=== PATIENT | female | born 1980 | race Caucasian/White ===

== ENCOUNTER 2016-12-09 13:59 | Emergency (ER) | payer BC ==
[2016-12-09 14:22] VITALS: PULSE 86; RESP 18; TEMP 98.1; O2SAT 100
--- NOTE | 2016-12-09 14:34 | ED PDOC ---
HPI: Skin/Bite Injury Time Seen by Provider: 12/09/16 14:27 Chief Complaint (Nursing): Bite Chief Complaint (Provider): dog bite History Per: Patient History/Exam Limitations: no limitations Onset/Duration Of Symptoms: Days (yesterday) Current Symptoms Are (Timing): Still Present Additional Complaint(s): 35yo F in Ed for eval of right 2nd digit dog bite sustained yesterday was seen by Haylee, Bear and Rx abx, however finger became more swollen, joint more stiff and more painful. denies fever shill. sent form office to have IV abx. - Animal Bite Description Of The Attack: Unprovoked Attack Description Of The Animal: Other (known [facility] from [facility] Animal Appears: Well Animal's Immunization Status: UTD Animal Control Notified: Yes Past Medical History Reviewed: Historical Data, Nursing Documentation, Vital Signs Vital Signs: Last Vital Signs Temp 98.1 F 12/09/16 14:17 Pulse 86 12/09/16 14:17 Resp 18 12/09/16 14:17 BP Pulse Ox 100 12/09/16 16:24 - Medical History PMH: No Chronic Diseases - Family History Family History: States: No Known Family Hx - Allergies Allergies/Adverse Reactions: Allergies Allergy/AdvReac Type Severity Reaction Status Date / Time No Known Allergies Allergy Verified 12/09/16 14:17 Review of Systems ROS Statement: Except As Marked, All Systems Reviewed And Found Negative Musculoskeletal: Positive for: Hand Pain Physical Exam - Reviewed Nursing Documentation Reviewed: Yes Vital Signs Reviewed: Yes - Physical Exam Appears: Positive for: Well, Non-toxic, No Acute Distress Cardiovascular/Chest: Positive for: Regular Rate, Rhythm Respiratory: Positive for: CNT, Normal Breath Sounds Extremity: Positive for: Other (right hand: 2nd digit-swelling noted wound noted ertyhema and awarmth noted dec ROM of joint noted. tenderness noted no drainage. good pulses) Neurologic/Psych: Positive for: Alert, Oriented - Laboratory Results Result Diagrams: 12/09/16 14:45 12/09/16 14:45 - ECG O2 Sat by Pulse Oximetry: 100 - Progress ED Course And Treament: pt will get unaysn IV, cbc/cmp Medical Decision Making Medical Decision Making: pt without elevated WBC, PT received unaysn IV and will be d/c with abx ( augmentin) with f.u with Diego MD. advise to use warm compress to area Disposition - Clinical Impression Clinical Impression: Animal bite wound - Patient ED Disposition Is Patient to be Admitted: No Counseled Patient/Family Regarding: Studies Performed, Diagnosis, Need For Followup, Rx Given - Disposition Referrals: Bear Harris MD [Medical Doctor] - Disposition: Routine/Home Disposition Time: 16:31 Condition: STABLE Instructions: Animal Bite (ED)
[2016-12-09 15:14] LABS: BASO # 0.1 K/uL (0.0-0.2); EOS # 0.1 K/uL (0.0-0.7); EOS % 1.2 % (0.0-4.0); HEMOGLOBIN 12.1 g/dL (12.0-16.0); LYMPH # 1.4 K/uL (1.0-4.3); LYMPH % 19.6 % (20.0-40.0); MEAN CORPUSCULAR HEMOGLOBIN 28.5 pg (27.0-31.0); MEAN CORPUSCULAR HGB CONC 33.1 g/dL (33.0-37.0); MEAN PLATELET VOLUME 7.9 fl (7.2-11.7); MONO # 0.5 K/uL (0.0-0.8); MONO % 7.1 % (0.0-10.0); NEUT # 5.2 K/uL (1.8-7.0); NEUT % 71.1 % (50.0-75.0); RBC 4.26 Mil/uL (3.80-5.20); RED CELL DISTRIBUTION WIDTH 13.8 % (11.5-14.5); WHITE BLOOD COUNT 7.3 K/uL (4.8-10.8)
[2016-12-09 15:24] LABS: ALB/GLOB RATIO 1.5 (1.0-2.1); ALBUMIN 4.1 g/dL (3.5-5.0); ALT/SGPT 30 U/L (9-52); AST/SGOT 23 U/L (14-36); BLOOD UREA NITROGEN 13 mg/dl (7-17); CALCIUM 9.3 mg/dL (8.4-10.2); GFR AFRICAN-AMERICAN > 60; GFR NON-AFRICAN AMERICAN > 60
[2016-12-09] MEDS ORDERED: Ampicillin/Sulbactam 3 GM in Sodium Chloride 0.9% 100 ML IVPB SCH (16:00)
== END 2016-12-09 16:51 | disposition home or self-care (01) ==
LOC: H.ER 13:59
DX: S61.250A Open bite of right index finger without damage to nail, initial encounter (principal); W54.0XXA Bitten by dog, initial encounter; Y93.9 Activity, unspecified
CPT/HCPCS: 80053; 85025; 96365; 99281; J0295

== ENCOUNTER 2018-01-25 07:44 | Emergency (ER) | payer BC ==
[2018-01-25 07:47] VITALS: BMI 17.3
[2018-01-25] MEDS ORDERED: Sodium Chloride 0.9% 1,000 ML IV STA (08:21)
--- NOTE | 2018-01-25 08:50 | ED PDOC ---
HPI: Abdomen Time Seen by Provider: 01/25/18 08:06 Chief Complaint (Nursing): Abdominal Pain Chief Complaint (Provider): Abdominal Pain History Per: Patient History/Exam Limitations: no limitations Onset/Duration Of Symptoms: Hrs (x 12 ) Current Symptoms Are (Timing): Still Present Context: Food Location Of Pain/Discomfort: RUQ, Epigastric Quality Of Discomfort: "Pain" Associated Symptoms: Chills, Nausea, Diarrhea Additional Complaint(s): 37 year old female with no significant medical history presents to the ED with abdominal pain associated with nausea, chills and 3 episodes of diarrhea, onset 12 hours ago. Patient reports eating raw oysters last night with alcohol around 9 pm and a chicken sandwich 4 hours previously. Symptoms developed shortly after eating the oysters. Patient denies fever, trouble breathing, headache, vomiting and rash. PMD: none provided Abnormal Vaginal Bleeding: No Last Menstral Period: 25 days ago Past Medical History Reviewed: Historical Data, Nursing Documentation, Vital Signs Vital Signs: Last Vital Signs Temp 97.3 F L 01/25/18 07:47 Pulse 99 H 01/25/18 07:47 Resp 18 01/25/18 07:47 BP 103/70 01/25/18 07:47 Pulse Ox 98 01/25/18 08:58 - Medical History PMH: Anxiety (panic attacks) - Surgical History Other surgeries: ovarian cystectomy - Family History Family History: States: Unknown Family Hx - Social History Current smoker - smoking cessation education provided: Yes Alcohol: Social - Immunization History Hx Tetanus Toxoid Vaccination: Yes Hx Influenza Vaccination: No Hx Pneumococcal Vaccination: No - Home Medications Home Medications: Ambulatory Orders Medication Instructions Recorded Famotidine [Pepcid] 20 mg PO BID #28 tab 01/25/18 Ondansetron [Zofran] 4 mg PO Q8H #9 tab 01/25/18 - Allergies Allergies/Adverse Reactions: Allergies Allergy/AdvReac Type Severity Reaction Status Date / Time No Known Allergies Allergy Verified 01/25/18 08:00 Review of Systems ROS Statement: Except As Marked, All Systems Reviewed And Found Negative Constitutional: Positive for: Chills. Negative for: Fever Gastrointestinal: Positive for: Nausea, Abdominal Pain, Diarrhea. Negative for : Vomiting Skin: Negative for: Rash Neurological: Negative for: Headache Physical Exam - Reviewed Nursing Documentation Reviewed: Yes Vital Signs Reviewed: Yes - Physical Exam Appears: Positive for: Non-toxic, No Acute Distress Head Exam: Positive for: ATRAUMATIC, NORMAL INSPECTION, NORMOCEPHALIC Skin: Positive for: Normal Color, Warm, Dry Eye Exam: Positive for: EOMI, Normal appearance, PERRL Neck: Positive for: Normal, Painless ROM, Supple Cardiovascular/Chest: Positive for: Regular Rate, Rhythm. Negative for: Murmur Respiratory: Positive for: Normal Breath Sounds. Negative for: Wheezing, Respiratory Distress Gastrointestinal/Abdominal: Positive for: Bowel Sounds (present), Tenderness ( epigastric and RUQ tenderness; also mild lower abdominal tendernes) Extremity: Positive for: Normal ROM. Negative for: Deformity Neurologic/Psych: Positive for: Alert, Oriented (x 3). Negative for: Motor/ Sensory Deficits - Laboratory Results Result Diagrams: 01/25/18 08:29 01/25/18 08:29 - ECG O2 Sat by Pulse Oximetry: 98 (RA) Pulse Ox Interpretation: Normal - Progress Re-evaluation Time: 10:05 Condition: Improved Medical Decision Making Medical Decision Makin:21 Impression: abdominal pain, nausea and diarrhea Initial Plan: --CMP --Lipase --Urine preg --Urine dip --CBC --NS IV --Pepcid 20 mg IVP --Zofran inj 4 mg IVP --urine cx --UA Scribe Attestation: Documented by Catalina Ozuna, acting as a scribe for Sirisha Blakely MD Provider Scribe Attestation: All medical record entries made by the Scribe were at my direction and personally dictated by me. I have reviewed the chart and agree that the record accurately reflects my personal performance of the history, physical exam, medical decision making, and the department course for this patient. I have also personally directed, reviewed, and agree with the discharge instructions and disposition. Disposition - Clinical Impression Clinical Impression: Gastroenteritis - Patient ED Disposition Is Patient to be Admitted: No Doctor Will See Patient In The: Office Counseled Patient/Family Regarding: Diagnosis, Need For Followup, Rx Given - Disposition Referrals: Jez Head MD [Staff Provider] - Disposition: Routine/Home Disposition Time: 09:45 Condition: IMPROVED Prescriptions: Famotidine [Pepcid] 20 mg PO BID #28 tab Ondansetron [Zofran] 4 mg PO Q8H #9 tab Instructions: Gastroenteritis (ED) Forms: [email or web address] ([place]) - POA Present On Arrival: None
[2018-01-25 09:21] LABS: BASO % 0.6 % (0.0-2.0); EOS # 0.1 K/uL (0.0-0.7); EOS % 1.7 % (0.0-4.0); HEMOGLOBIN 12.7 g/dL (12.0-16.0); LYMPH # 0.9 K/uL (1.0-4.3); LYMPH % 12.4 % (20.0-40.0); MEAN CELL VOLUME 86.5 fl (81.0-99.0); MEAN CORPUSCULAR HEMOGLOBIN 29.1 pg (27.0-31.0); MEAN CORPUSCULAR HGB CONC 33.6 g/dL (33.0-37.0); MONO # 0.4 K/uL (0.0-0.8); NEUT # 5.9 K/uL (1.8-7.0); NEUT % 80.3 % (50.0-75.0); RBC 4.38 Mil/uL (3.80-5.20); RED CELL DISTRIBUTION WIDTH 13.2 % (11.5-14.5); WHITE BLOOD COUNT 7.4 K/uL (4.8-10.8)
[2018-01-25 09:25] LABS: ALB/GLOB RATIO 1.6 (1.0-2.1); ALBUMIN 3.8 g/dL (3.5-5.0); ALT/SGPT 27 U/L (9-52); AST/SGOT 27 U/L (14-36); BLOOD UREA NITROGEN 14 mg/dl (7-17); CALCIUM 8.8 mg/dL (8.4-10.2); GFR NON-AFRICAN AMERICAN > 60; LIPASE 31 U/L (23-300)
[2018-01-25 09:38] LABS: URINE BACTERIA MANY (<OCC); URINE BILIRUBIN SMALL (NEGATIVE); URINE BLOOD NEGATIVE (NEGATIVE); URINE CLARITY TURBID (Clear); URINE COLOR AMBER (YELLOW); URINE GLUCOSE (UA) NEG (Normal); URINE LEUKOCYTE ESTERASE NEG Leu/uL (Negative); URINE PROTEIN 100 mg/dL (NEGATIVE); WBC CLUMPS FEW /hpf
[2018-01-25 09:51] LABS: SQUAMOUS EPITHIAL 1 /hpf (0-5)
[2018-01-25 10:23] VITALS: BP 104/69; PULSE 65; RESP 17; O2SAT 100
[2018-01-25 10:24] VITALS: TEMP 98.5
== END 2018-01-25 10:24 | disposition home or self-care (01) ==
LOC: H.ER 07:44
DX: K52.9 Noninfective gastroenteritis and colitis, unspecified (principal); F41.9 Anxiety disorder, unspecified
CPT/HCPCS: 80053; 81003; 81025; 83690; 85025; 87086; 96361; 96374; 96375; 99284; J2405; J7030